=== PATIENT | male | born 1995 | race Caucasian/White ===

== ENCOUNTER → 2019-01-27 | Outpatient (CLI) | payer BC ==
--- NOTE | 2019-01-28 13:23 | PCVCIMAG ---
APPROVED REPORT Study performed: 01/27/2019 15:13:52 EXAM: Comprehensive 2D, Doppler, and color-flow Echocardiogram Patient Location: Echo lab Room #: 3Status: routine BSA: 2.05 HR: 68 bpmBP: 140/58 mmHg Rhythm: NSR Other Information Study Quality: Good Indications Aortic Valve Disease Hx: Aortic stenosis with balloon dilitation at 6 weeks of age 2D Dimensions IVSd: 7.75 (7-11mm)LVOT Diam: 23.94 (18-24mm) LVDd: 56.37 mm PWd: 10.96 (7-11mm)Ascending Ao: 27.45 (22-36mm) LVDs: 36.45 (25-40mm) Left Atrium: 28.09 (27-40mm) Aortic Root: 20.97 mm LV Single Plane 4CH: 62.31 % LV Single Plane 2CH: 60.77 % Biplane EF: 62.6 % Volumes Left Atrial Volume (Systole) Single Plane 4CH: 45.22 mLSingle Plane 2CH: 42.41 mL Biplane LA Volume: 46.00 mLLA ESV Index: 22.00 mL/m2 Aortic Valve AoV Peak Dion.: 2.03 m/s AO Peak Gr.: 16.17 mmHgLVOT Max P.01 mmHg AO Mean Gr.: 9.83 mmHgLVOT Mean P.92 mmHg AO V2 Mean: 1.52 m/sLVOT Max V: 1.11 m/s AO V2 VTI: 40.91 cmLVOT Mean V: 0.82 m/s SATINDER (VTI): 2.53 [id number] V1 VTI: 23.00 cm SATINDER Vmax: 2.44 cm2 AI Vmax: 5.62 m/sSV (LVOT): 103.46 mL AI Millard: 4.21 m/s2 AI PHT: 390.62 ms Mitral Valve E/A Ratio: 1.6 MV Decel. Time: 133.73 ms MV E Max Dion.: 0.72 m/s MV A Dion.: 0.45 m/s IVRT: 83.04 ms TDI E/Lateral E': 5.54E/Medial E': 6.00 Medial E' Dion.: 0.12 m/s Lateral E' Dion.: 0.13 m/s Pulmonary Valve PV Peak Dion.: 1.08 m/sPV Peak Gr.: 4.67 mmHg Pulmonary Vein P Vein S: 0.53 m/sP Vein A: 0.35 m/s P Vein D: 0.68 m/sP Vein A Dur.: 93.4 msec P Vein S/D Ratio: 0.78 Tricuspid Valve TV Vmax: 0.80 m/s Left Ventricle Left ventricle is at the upper limits of normal. There is normal LV segmental wall motion. There is normal left ventricular wall thickness. Left ventricular systolic function is normal. The left ventricular ejection fraction is within the normal range. LVEF is 60-65%. Right Ventricle The right ventricle is normal size. The right ventricular systolic function is normal. Atria The left atrium size is normal. The right atrium size is normal. Aortic Valve Aortic valve is bicuspid. Increased velocity across the valve is seen. Moderate to severe aortic regurgitation. Reverse flow is seen in the aorta. There is no aortic valvular stenosis. Mitral Valve The mitral valve is normal in structure. There is no mitral valve regurgitation noted. No evidence of mitral valve stenosis. Mild prolapse of the anterior mitral valve leaflet. Tricuspid Valve The tricuspid valve is normal in structure. There is no tricuspid valve regurgitation noted. Pulmonic Valve The pulmonary valve is normal in structure. There is no pulmonic valvular regurgitation. Great Vessels The aortic root is normal in size. The ascending aorta is normal in size. Aortic arch is normal in caliber. IVC is normal in size and collapses >50% with inspiration. Pericardium There is no pericardial effusion. There is no pleural effusion. <Conclusion> Left ventricle is at the upper limits of normal. LVEF is 60-65%. Aortic valve is bicuspid. Increased velocity across the valve is seen. Moderate to severe aortic regurgitation. Reverse flow is seen in the aorta. The mitral valve is normal in structure. The tricuspid valve is normal in structure. The pulmonary valve is normal in structure. There is no pericardial effusion.
== END | disposition home or self-care (01) ==
LOC: PCVCIMAG 16:12
PROVIDERS: ATTEND Internal Medicine
DX: I35.1 Nonrheumatic aortic (valve) insufficiency (principal)
CPT/HCPCS: 93306